=== PATIENT | male | born 1985 | race Caucasian/White ===

== ENCOUNTER 2016-11-19 16:32 | Emergency (ER) | payer OTHER ==
[2016-11-19] MEDS ORDERED: MORPHINE IV ONE (17:05)
--- NOTE | 2016-11-19 17:07 | Emergency Department Report ---
HPI - General Chief Complaint: Abdominal Pain Time Seen by Provider: 11/19/16 16:52 - HPI HPI: This is a 31-year-old male who presents to the emergency department from the gastroenterologists office/surgical suite, where the patient just had a colonoscopy, with complaint of a generalized abdominal pain worst in the lower quadrants of the abdomen. The patient has a history of Crohn's disease and was having the colonoscopy as a follow-up to that. Supposedly the procedure went fine but when the patient awoke in the recovery room he complained of significant abdominal pain and there was some distention. He did pass gas once or twice and that seemed to soften his belly and improve his pain but it continues to return. The colonoscopy was done by Dr. Roper and his primary care needs are served by the [facility]. There is no other past medical history besides the Crohn's disease. He was given propofol and lidocaine for the procedure and one of these 2 medications appear to cause him some rash and itching. ED Review of Systems ROS: Stated complaint: ABD PAIN Other details as noted in HPI Comment: All other systems reviewed and negative Constitutional: denies: chills, fever Eyes: denies: eye pain, eye discharge, vision change ENT: denies: ear pain, throat pain Respiratory: denies: cough, shortness of breath, wheezing Cardiovascular: denies: chest pain, palpitations Gastrointestinal: abdominal pain. denies: nausea, vomiting Genitourinary: denies: urgency, dysuria Musculoskeletal: denies: back pain, joint swelling, arthralgia Skin: denies: rash, lesions Neurological: denies: headache, weakness, paresthesias Physical Exam - Physical Exam Vital Signs: Vital Signs 11/19/16 16:38 Temperature 97.9 F Pulse Rate 59 L Respiratory 18 Rate Blood Pressure 116/81 Blood Pressure 116/81 [Left] O2 Sat by Pulse 100 Oximetry Physical Exam: GENERAL: The patient is well-developed well-nourished. HEENT: Normocephalic. Atraumatic. Extraocular motions are intact. Patient has moist mucous membranes. Pupils equal reactive to light bilaterally. NECK: Supple. Trachea is midline. CHEST/LUNGS: Clear to auscultation. There is no respiratory distress noted. HEART/CARDIOVASCULAR: Regular. There is no tachycardia. There is no gallop rub or murmur. ABDOMEN: Abdomen is soft. Mild generalized tenderness to palpation of the abdomen. Patient has audible but decreased bowel sounds. There is mild abdominal distention. SKIN: Skin is warm and dry. NEURO: The patient is awake, alert, and oriented. The patient is cooperative. The patient has no focal neurologic deficits. The patient has normal speech. MUSCULOSKELETAL: There is no tenderness or deformity. There is no limitation range of motion. There is no evidence of acute injury. ED Course Vital Signs 11/19/16 16:38 Temperature 97.9 F Pulse Rate 59 L Respiratory 18 Rate Blood Pressure 116/81 Blood Pressure 116/81 [Left] O2 Sat by Pulse 100 Oximetry ED Medical Decision Making - Lab Data Result diagrams: 11/19/16 17:28 11/19/16 17:28 - Radiology Data Radiology results: report reviewed, image reviewed interpreted by me: Abdominal x-ray shows a large amount of bowel gas throughout the entire small and large intestines. CT of the abdomen and pelvis with IV contrast does not show any pneumoperitoneum. No free fluid or inflammatory changes are seen. There is a gassy distention of the small bowel and proximal colon that is consistent with recent colonoscopy. - Medical Decision Making 31-year-old male presents to the emergency department after a colonoscopy with complaint of abdominal distention and pain. Patient's labs and unremarkable. Vital signs stable throughout his ED course. Patient is awake and alert. Abdominal x-ray shows a large amount of bowel gas throughout the large and small intestines that appears consistent with a colonoscopy but due to this appearance a CT scan was performed. There was no pneumoperitoneum seen on CT and no free fluid or inflammatory changes. There is a large amount of bowel gas seen but once again it was read as consistent with recent colonoscopy. Patient has passed some gas while in the emergency department and the pain is improved. 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 He has been encouraged to get up and walk around to stimulant the bowels. He will return to the ER with any worsening of his pain or any further abdominal distention. - Differential Diagnosis pneumoperitoneum, bloating, bowel obstruction, constipation Critical Care Time: No Critical care attestation.: If time is entered above; I have spent that time in minutes in the direct care of this critically ill patient, excluding procedure time. ED Disposition Clinical Impression: Postoperative abdominal pain, Abdominal gas pain Disposition: DISCHARGED TO HOME OR SELFCARE Is pt being admited?: No Condition: Stable Instructions: Gas and Bloating (ED) Additional Instructions: Please follow-up with your primary care doctor and linen grader as needed. Return to the emergency department with any worsening of her symptoms or any acute distress. Referrals: PRIMARY CARE, [Primary Care Provider] - 3-5 Days Time of Disposition: 19:56
[2016-11-19 17:45] LABS: Basophils % (Auto) 0.6 % (0.0-1.8); Eosinophils % (Auto) 2.3 % (0.0-4.3); Hemoglobin 14.4 gm/dl (11.8-15.2); Mean Corpuscular HGB Conc 34 % (32-34); Mean Corpuscular Hemoglobin 31 pg (28-32); Mean Corpuscular Volume 92 fl (84-94); Platelet Count 199 K/mm3 (140-440); Red Blood Count 4.68 M/mm3 (3.65-5.03); Red Cell Distribution Width 13.6 % (13.2-15.2); White Blood Count 7.2 K/mm3 (4.5-11.0)
[2016-11-19] MEDS ORDERED: NACL ONE (18:01)
[2016-11-19 18:03] LABS: Alanine Aminotransferase 13 units/L (7-56); Albumin 3.9 g/dL (3.9-5); Albumin/Globulin Ratio 1.4 %; Alkaline Phosphatase 61 units/L (35-129); Anion Gap 16 mmol/L; BUN/Creatinine Ratio 14.28; Bilirubin,Total 0.7 mg/dL (0.1-1.2); Blood Urea Nitrogen 10 mg/dL (9-20); Calcium 8.5 mg/dL (8.4-10.2); Carbon Dioxide 24 mmol/L (22-30); Chloride 100.9 mmol/L (98-107); Glucose 76 mg/dL (75-100); Lipase 22 units/L (13-60); Potassium 3.4 mmol/L (3.6-5.0); Sodium 137 mmol/L (137-145); Total Protein 6.7 g/dL (6.3-8.2)
[2016-11-19] MEDS ORDERED: NACL 0.9% 1000 ML 0 ML ONE (18:04)
--- NOTE | 2016-11-19 19:36 | Cat Scan Report ---
FINAL REPORT EXAM: CT ABDOMEN PELVIS W CON HISTORY: Abd pain PT STATES HE HAD A COLONOSCOPY TODAY AND WOKE UP IN PAIN. HE WAS SENT TO ER. TECHNIQUE: Serial axial images through the abdomen and pelvis with coronal and sagittal reconstruction. 100 milliliters Omnipaque 300 PRIORS: None. FINDINGS: There is mild atelectasis in the dependent portion of the lung bases. No pleural effusion is seen. There is hypoattenuation of the hepatic parenchyma which may indicate fatty infiltration. The gallbladder, pancreas, spleen, and adrenal glands appear within normal limits. Kidneys appear normal. Bladder appears normal. There is gassy is distension of the small bowel and proximal colon. The distal colon is decompressed. No pneumoperitoneum is seen. No free fluid. No acute osseous abnormality is identified. IMPRESSION: 1. No pneumoperitoneum is identified. 2. No free fluid or inflammatory changes are seen in the abdomen or pelvis. 3. There is gassy is distention of the small bowel and proximal colon. This is consistent with recent colonoscopy.
[2016-11-19 19:44] VITALS: BP 103/64
--- NOTE | 2016-11-20 10:32 | XRay Report ---
ABDOMEN RADIOGRAPHS INDICATION: Abdominal pain, status post colonoscopy. COMPARISON: None similar at this institution. FINDINGS: Frontal abdominal radiographs, 4 images, demonstrate air throughout the colon. Multiple air-filled small bowel loops also measure up to 2.8 cm caliber. No focal suspicious calcifications, pneumatosis or pneumoperitoneum. Clear visualized lung bases. EKG leads. Intact bones. CONCLUSION: Air-filled colon with some small bowel air noted, as described. Thank you for the opportunity to participate in this patient's care.
== END 2016-11-19 20:08 | disposition home or self-care (01) ==
LOC: ED 16:32
DX: R10.84 Generalized abdominal pain (principal); G89.18 Other acute postprocedural pain
CPT/HCPCS: 36415; 74020; 74177; 80053; 83690; 85025; 96374; 99285; J2270; Q9967; J7030